=== PATIENT | female | born 1935 | race Caucasian/White ===

== ENCOUNTER 2020-11-12 09:45 | Emergency (ER) | payer OTHER ==
[2020-11-12] MEDS ORDERED: Ondansetron 4 MG Tab.DIS PO ONE (10:25)
[2020-11-12] MEDS ORDERED: Phenazopyridine 95 MG Tab PO ONE (10:27)
--- NOTE | 2020-11-12 10:28 | EDM.PDOC ---
ED HPI GENERAL MEDICAL PROBLEM - General Chief Complaint: Genitourinary Problem Stated Complaint: POSSIBLE UTI Time Seen by Provider: 11/12/20 10:15 Source of Information: Reports: Patient. Denies: Old Records History Limitations: Reports: No Limitations - History of Present Illness INITIAL COMMENTS - FREE TEXT/NARRATIVE: 85 yo female visiting from the [facility] presents with dysuria and hematuria and mild nausea, but no vomiting or fever. No flank pain. Her last UTI was about 10 yrs ago. Has not taken her BP meds yet today. Onset: Today Onset Date: 11/12/20 Duration: Hour(s): Location: Reports: Pelvis (urethral) Quality: Reports: Burning Severity: Moderate Improves with: Reports: None Worsens with: Reports: Other (time, voiding) Context: Reports: Other (See HPI) Associated Symptoms: Reports: Nausea/Vomiting (no vomting). 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 (see below) (none) Bladder Pain Score (Numeric/FACES): 3 - Related Data Allergies Allergy/AdvReac Type Severity Reaction Status Date / Time clonidine Allergy Cannot Verified 11/12/20 10:12 Remember moxifloxacin [From Avelox] Allergy Itching Verified 11/12/20 10:12 Home Meds: Home Meds Aspirin [Halfprin] 81 mg PO DAILY 11/12/20 [History] Calcium Carb/Vitamin D3/Vit K1 [Calcium + D Soft Chewable Tab] 1 tab PO DAILY 11/12/20 [History] Hydrochlorthiazide/Irbesartan [Avalide 12.5-300 MG] 1 tab PO DAILY 11/12/20 [History] Levothyroxine 25 mcg PO DAILY 11/12/20 [History] Metoprolol Succinate 100 mg PO DAILY 11/12/20 [History] Omeprazole 20 mg PO DAILY 11/12/20 [History] Sulfamethoxazole/Trimethoprim [Bactrim Ds Tablet] 1 each PO Q12H #9 tablet 11/12/20 [Rx] Ubidecarenone [Co Q-10] 100 mg PO DAILY 11/12/20 [History] atorvaSTATin [Lipitor] 10 mg PO DAILY 11/12/20 [History] Past Medical History HEENT History: Reports: Cataract, Impaired Vision Cardiovascular History: Reports: High Cholesterol, Hypertension 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: Endocrine/Metabolic History: Reports: Hypothyroidism - Past Surgical History HEENT Surgical History: Reports: Cataract Surgery GI Surgical History: Reports: Cholecystectomy Musculoskeletal Surgical History: Reports: Knee Replacement Social & Family History - Tobacco Use Tobacco Use Status *Q: Never Tobacco User - Caffeine Use Caffeine Use: Reports: Coffee - Recreational Drug Use Recreational Drug Use: No ED ROS GENERAL - Review of Systems Review Of Systems: See Below Constitutional: Reports: No Symptoms Respiratory: Reports: No Symptoms Cardiovascular: Reports: No Symptoms GI/Abdominal: Reports: Nausea. Denies: Diarrhea, Vomiting : Reports: Dysuria, Frequency, Hematuria, Urgency. Denies: Flank Pain Skin: Reports: No Symptoms ED EXAM, RENAL/ - Physical Exam Exam: See Below Exam Limited By: No Limitations General Appearance: Alert, WD/WN, No Apparent Distress Eye Exam: Bilateral Eye: Normal Inspection Ears: Normal External Exam, Normal Canal, Hearing Grossly Normal Nose: Normal Inspection, No Blood Throat/Mouth: Normal Inspection, Normal Lips, Normal Oropharynx, Normal Voice, No Airway Compromise Head: Atraumatic, Normocephalic Neck: Normal Inspection Respiratory/Chest: No Respiratory Distress, Lungs Clear, Normal Breath Sounds, No Accessory Muscle Use Cardiovascular: Regular Rate, Rhythm Back Exam: No: CVA Tenderness (R), CVA Tenderness (L) Psychiatric: Normal Affect, Normal Mood Skin Exam: Warm, Dry, Intact, Normal Color, No Rash Course - Vital Signs Last Recorded V/S: Last Vital Signs Temp 36.6 C 11/12/20 10:11 Pulse 79 11/12/20 10:11 Resp 16 11/12/20 10:11 BP 191/85 H 11/12/20 10:11 Pulse Ox 95 11/12/20 10:11 - Orders/Labs/Meds Orders: Active Orders 24 hr Category Date Time Status CULTURE URINE [RM] Stat Lab 11/12/20 10:49 Ordered Labs: Laboratory Tests 11/12/20 Range/Units 10:23 Urine Color Red A (YELLOW) Urine Appearance Cloudy A (CLEAR) Urine pH 7.0 (5.0-8.0) Ur Specific [place] 1.020 (1.008-1.030) Urine Protein >=300 H (NEGATIVE) mg/dL Urine Glucose (UA) Negative (NEGATIVE) mg/dL Urine Ketones Negative (NEGATIVE) mg/dL Urine Occult Blood Large H (NEGATIVE) Urine Nitrite Negative (NEGATIVE) Urine Bilirubin Negative (NEGATIVE) Urine Urobilinogen 0.2 (0.2-1.0) EU/dL Ur Leukocyte Esterase Small (NEGATIVE) Urine RBC Packed H (0-5) Urine WBC 5-10 H (0-5) Ur Epithelial Cells Rare Amorphous Sediment Rare Urine Bacteria Few Urine Mucus Not seen Meds: Medications Discontinued Medications Generic Name Dose Route Start Last Admin Trade Name Freq PRN Reason Stop Dose Admin Ondansetron HCl 4 mg 11/12/20 10:25 Ondansetron 4 Mg Tab.Dis PO 11/12/20 10:26 ONETIME ONE Phenazopyridine HCl 190 mg 11/12/20 10:27 Phenazopyridine 95 Mg Tab PO 11/12/20 10:28 ONETIME ONE Trimethoprim/Sulfamethoxazole 1 tab 11/12/20 10:50 Sulfamethoxazole/Trimethoprim 800-160 Mg Tab PO 11/12/20 10:51 ONETIME ONE Departure - Departure Time of Disposition: 11:00 Disposition: Home, Self-Care 01 Condition: Fair Clinical Impression: Cystitis - Discharge Information *PRESCRIPTION DRUG MONITORING PROGRAM REVIEWED*: Not Applicable *COPY OF PRESCRIPTION DRUG MONITORING REPORT IN PATIENT SHAWN: Not Applicable Prescriptions: Sulfamethoxazole/Trimethoprim [Bactrim Ds Tablet] 1 each PO Q12H #9 tablet Referrals: PCP,None [Primary Care Provider] - Forms: ED Department Discharge Additional Instructions: Use the Bactrim every 12 hrs. Drink ample fluids. Use AZO as needed for burning symptoms. Recheck with your doctor if not starting to improve by 3 days, sooner for fever. Sepsis Event Note (ED) - Evaluation Sepsis Screening Result: No Definite Risk - Focused Exam Vital Signs: Vital Signs Temp Pulse Resp BP Pulse Ox 11/12/20 10:11 36.6 C 79 16 191/85 H 95 11/12/20 10:07 36.6 C 79 191/85 H 95 - My Orders Last 24 Hours: My Active Orders 11/12/20 10:49 CULTURE URINE [RM] Stat - Assessment/Plan Last 24 Hours: My Active Orders 11/12/20 10:49 CULTURE URINE [RM] Stat
[2020-11-12] MEDS ORDERED: Sulfamethoxazole/Trimethoprim 800-160 MG Tab PO ONE (10:50)
== END 2020-11-12 11:02 | disposition home or self-care (01) ==
LOC: JP.ED 09:45
DX: N30.90 Cystitis, unspecified without hematuria (principal); E78.00 Pure hypercholesterolemia, unspecified; I10 Essential (primary) hypertension; E03.9 Hypothyroidism, unspecified; Z88.8 Allergy status to other drugs, medicaments and biological substances; Z88.1 Allergy status to other antibiotic agents; Z79.82 Long term (current) use of aspirin; Z79.899 Other long term (current) drug therapy
CPT/HCPCS: 81001; 87086; 87088; 87186; 99283; A9270